=== PATIENT | female | born 1955 | race Hispanic/Latino ===

== ENCOUNTER 2022-06-25 10:16 | Emergency (ER) | payer SELFPAY ==
[2022-06-25 10:31] VITALS: BP 156/85
[2022-06-25 10:46] LABS: GFR FOR AFR.AMER. > 60 ML/MIN (>=60 (CALC)); GFR OTHER RACES > 60 ML/MIN (>=60 (CALC)); HEMATOCRIT 44.9 % (37.0-47.0); HEMOGLOBIN 15.6 g/dl (12.0-16.0); IMMATURE GRANULOCYTES 1.2 % (0.0-5.0); MEAN CELL VOLUME 83.1 fL CALC (80.0-100.0); MEAN CORPUSCULAR HGB 28.9 pG CALC (26.0-32.0); MEAN CORPUSCULAR HGB CONC 34.7 g/dL CAL (32.0-36.0); NEUT# 7.07 thou/uL (2.00-7.15); RED BLOOD COUNT 5.4 mill/uL (4.20-5.60); RED CELL DISTRI WIDTH 12.4 % (11.5-15.5)
[2022-06-25 11:00] VITALS: BP 139/77
[2022-06-25 11:04] LABS: ALBUMIN 4.5 g/dL (3.2-5.0); ALKALINE PHOSPHATASE 131 u/l (38-126); ANION GAP 17 (6-22 (CALC)); BILIRUBIN, TOTAL 0.5 mg/dL (0.0-1.4); BUN 12 mg/dL (8-23); BUN/CREATININE RATIO 19 (12-20 (CALC)); CARBON DIOXIDE 21 mmol/l (22-30); CHLORIDE 103 mmol/l (95-108); CREATININE 0.6 mg/dL (0.5-1.0); GFR FOR AFR.AMER. > 60 ML/MIN (>=60 (CALC)); GFR OTHER RACES > 60 ML/MIN (>=60 (CALC)); LIPASE 107 u/l (23-300); POTASSIUM 4.1 mmol/l (3.5-5.1); SGOT/AST 40 u/l (9-36); SODIUM 136 mmol/l (137-146); TOTAL PROTEIN 9.4 g/dL (6.3-8.2)
[2022-06-25 12:00] VITALS: BP 142/80
[2022-06-25 12:30] VITALS: BP 147/82
[2022-06-25 12:48] LABS: URINE BILIRUBIN - DIPSTICK NEGATIVE (NEGATIVE); URINE BLOOD DIPSTICK NEGATIVE (NEGATIVE); URINE COLOR YELLOW; URINE GLUCOSE - DIPSTICK NEGATIVE (NEGATIVE); URINE KETONE NEGATIVE (NEGATIVE); URINE LEUK ESTERASE NEGATIVE (NEGATIVE); URINE PROTEIN - DIPSTICK 30 mg/dL (NEG-TRACE); URINE UROBILINOGEN - DIPSTICK 0.2 E.U./dL (0.2)
[2022-06-25 12:52] LABS: URINE NITRITE - DIPSTICK NEGATIVE (Negative)
[2022-06-25 12:53] LABS: URINE EPITHELIAL CELLS FEW EPI/hpf (0-FEW); URINE MUCUS MODERATE hpf (NONE-FEW)
[2022-06-25] MEDS ORDERED: PROTONIX20 M1 PO (12:58)
[2022-06-25] MEDS ORDERED: ZOFRAN4 MG/TAB PO (12:58)
[2022-06-25 13:00] VITALS: BP 145/76
[2022-06-25 13:11] VITALS: BP 145/76
== END 2022-06-25 13:26 | disposition home or self-care (01) | DRG 392 ==
LOC: ED 10:16
PROVIDERS: Family Medicine
DX: R10.9 Unspecified abdominal pain (principal); Z20.822 Contact with and (suspected) exposure to COVID-19; R11.2 Nausea with vomiting, unspecified; R19.7 Diarrhea, unspecified
CPT/HCPCS: Q9967; S0164